=== PATIENT | female | born 1965 | race African-American/Black ===

== ENCOUNTER 2021-08-16 22:27 | Emergency (ER) | payer MEDICARE, MEDICAID, SELFPAY ==
[2021-08-16 22:35] VITALS: BP 173/100; PULSE 88; RESP 18; TEMP 35.9; O2SAT 98
--- NOTE | 2021-08-16 23:12 | ED.GENADULT ---
HPI - General Adult General Chief complaint: Unspecified Stated complaint: high blood pressure Source: patient Mode of arrival: ambulatory History of Present Illness HPI narrative: this is a 55-year-old female with history of hypertension presents with elevated blood pressure 180/101 patient states that she has been anxious and has anxiety since she had a bout of gastroenteritis. Patient also saw her primary care physician too long ago and they discontinued hydrochlorothiazide but the patient currently is taking lisinopril. There was no symptoms no headache no blurry vision no nausea vomiting no chest pain no shortness of breath no abdominal pain no fever chills. Onset (ago): hour(s) Severity: mild Related Data Home Medications Medication Instructions Recorded Confirmed lisinopril 20 mg PO DAILY 08/16/21 08/16/21 Allergies Allergy/AdvReac Type Severity Reaction Status Date / Time tea tree Allergy Unknown Verified 08/16/21 22:53 anesthesia Allergy Unknown Uncoded 08/16/21 22:53 Review of Systems Review of Systems: All systems reviewed & are unremarkable except as noted in HPI and below PMFSH Past Medical History Medical History HTN (hypertension) Exam Const: General: cooperative, healthy appearing, comfortable and no acute distress HENMT: Head: normal to inspection Ears: hearing grossly normal bilaterally General nose exam: Normal external nose present Face and sinus: normal facial exam, sinuses nontender and face symmetric Mouth: Yes Normal oral and palatal mucosa present Teeth and gingiva: dentition normal Throat: posterior oropharynx normal Eyes: General: appearance normal, both eyes and all related structures Eyelids: eyelids normal Conjunctivae: conjunctivae normal Sclera: sclerae normal Neck: Neck: normal visual inspection, full ROM and no lymphadenopathy Chest: Chest palpation & inspection: normal inspection of the chest and normal palpation of entire chest wall Resp: Effort & Inspection: normal respiratory effort and able to speak in complete sentences Auscultation: clear to auscultation bilaterally Cardio: Jugular venous distension: no JVD Palpation: normal PMI Rate: regular rate Rhythm: regular rhythm GI: Inspection: normal to inspection Back/Spine/Pelvis: Back: no CVA tenderness Skin: General skin exam: normal color and no rashes or lesions noted Neuro: General: oriented to person, oriented to place, oriented to time, patient oriented x3 and gait normal Psych: Appearance: grossly normal and well kempt Course Course Emergency Course: patient with elevated blood pressure, has improved with some IV Lopressor 5mg, the patient states that she has been having anxiety but declined taking any anxiety medicines while here in the ER. Critical Care Time Critical Care Time Critical Care Time: No Discharge Plan Discharge Clinical Impression: HTN (hypertension), Anxiety Patient Disposition: Home, Self-Care Condition: Stable Instructions: Antibiotic Form, Hypertension (ED), Anxiety (ED) Additional Instructions: take medicine as prescribed and follow-up with primary care physician within 1 week for further evaluation treatment. Prescriptions: New amlodipine [Norvasc] 5 mg tablet 5 mg PO DAILY Qty: 30 RF: 0 alprazolam [Xanax] 0.5 mg tablet 0.5 mg PO BID PRN (Reason: anxiety) Qty: 20 RF: 0 No Action lisinopril 20 mg Tablet 20 mg PO DAILY RF: 0 Follow-up/Referrals: Mahin,Juan Cedeno MD [Primary Care Provider] - Time of Disposition: 23:23
[2021-08-16 23:26] VITALS: PULSE 74
[2021-08-16] MEDS: METOPROLOL TARTRATE INJ 5 MG/5 ML VIAL IV PUSH (23:26)
[2021-08-16 23:30] VITALS: BP 188/99; PULSE 78; RESP 18; O2SAT 97
[2021-08-16 23:54] VITALS: BP 158/103; PULSE 65
[2021-08-17] VITALS: BP 163/96; BP 172/99; PULSE 67; PULSE 68; RESP 16; RESP 18; O2SAT 96; O2SAT 97
[2021-08-17 00:15] VITALS: BP 178/91; PULSE 69; RESP 16; O2SAT 96
== END 2021-08-17 00:26 | disposition home or self-care (01) ==
PROVIDERS: Emergency Provider Emergency Medicine; PCP Internal Medicine
DX: I10 Essential (primary) hypertension (principal); F41.9 Anxiety disorder, unspecified
CPT/HCPCS: 96374; 99284

== ENCOUNTER 2022-03-10 13:44 | Emergency (ER) | payer MEDICARE, MEDICAID, SELFPAY ==
[2022-03-10 13:55] VITALS: BP 145/91; PULSE 99; RESP 16; TEMP 36.3; O2SAT 97
--- NOTE | 2022-03-10 14:07 | ED.URI ---
HPI - URI/Sore Throat General Chief Complaint: Upper Respiratory Infection Stated Complaint: Sinus infection and ear and mouth pain Time Seen by Provider: 03/10/22 14:06 Source: patient and RN notes reviewed Mode of arrival: ambulatory Limitations: no limitations History of Present Illness MD elicited complaint: rhinorrhea, nasal congestion and other (dental pain Right lower) Onset (ago): day(s) (3) Consistency: constant Severity: moderate Able to tolerate fluids by mouth: Yes Exacerbating factors: other (chewing) Relieving factors: nothing Treatments prior to arrival: none Related Data Home Medications Medication Instructions Recorded Confirmed lisinopril 20 mg tablet 20 mg PO DAILY 08/16/21 03/10/22 albuterol sulfate 90 mcg/actuation 2 puff inhalation BID 03/10/22 03/10/22 aerosol inhaler Allergies Allergy/AdvReac Type Severity Reaction Status Date / Time tea tree Allergy Unknown Verified 03/10/22 14:13 anesthesia Allergy Unknown Uncoded 08/16/21 22:53 PMFSH Past Medical History Medical History (Updated 03/10/22 @ 14:26 by Anastacio Eastman MD) HTN (hypertension) Surgical History Surgical History (Updated 03/10/22 @ 14:18 by Anastacio Eastman MD) H/O knee surgery right x2 H/O shoulder surgery left x2 Prior ectopic in first trimester, antepartum Social History Social History (Updated 03/10/22 @ 14:17 by Anastacio Eastman MD) Smoking packs per day: 0.5 Smoking cigarettes per day: 10.0 Smoking status: Current every day smoker Tobacco type: cigarettes Alcohol intake: former Substance use: never Exam Const: General: healthy appearing, no acute distress and alert Nutritional Appearance: well nourished Orientation/consciousness: patient oriented x3 Limitations: no limitations HENMT: Head: normal to inspection Ears: external ears normal and TM's normal bilaterally Face/Nose/Sinus: Normal external nose present Face and sinus: sinus tenderness maxillary ( bilateral) Mouth: Yes Normal oral and palatal mucosa present and Yes moist mucous membranes Teeth and gingiva: abnormal tooth and associated gingiva lower right second molar tender and with associated gingival edema Throat: posterior oropharynx normal and uvula midline Eyes: Conjunctivae: conjunctivae normal Pupils: Equal, round and reactive pupils present EOM: EOMs intact bilaterally Neck: Neck: normal visual inspection and no lymphadenopathy Resp: Effort & Inspection: normal respiratory effort Auscultation: clear to auscultation bilaterally Cardio: Rate: regular rate Rhythm: regular rhythm GI: GI Palp: Yes Soft to palpation and No Tenderness to palpation present (GI) Auscultation: normal bowel sounds Back/Spine/Pelvis: Cervical Spine: cervical ROM normal Thoracic/Lumbar Spine: thoraco-lumbar ROM normal Skin: General skin exam: normal color Rashes: no rashes Neuro: General: patient oriented x3, moves all extremities, no focal motor deficits and CN's II-XI intact bilaterally Speech: normal speech Gait exam (Neuro): Normal gait present Extrem: General: normal to inspection and no clubbing, cyanosis or edema Psych: Mental Status: mental status grossly normal Affect: normal affect Attitude: cooperative Discharge Plan Discharge Clinical Impression: Dental abscess Acute maxillary sinusitis Qualifiers: Recurrence: non-recurrent Qualified Code(s): J01.00 - Acute maxillary sinusitis, unspecified Patient Disposition: Home, Self-Care Condition: Stable Instructions: Antibiotic Form, Dental Abscess (ED), Sinusitis (ED) Prescriptions: New amoxicillin-pot clavulanate 875-125 mg tablet 1 tablet PO Q12H 10 Days Qty: 20 0RF No Action lisinopril 20 mg Tablet 20 mg PO DAILY alprazolam [Xanax] 0.5 mg tablet 0.5 mg PO BID PRN (Reason: anxiety) Qty: 20 0RF albuterol sulfate 90 mcg/actuation HFA aerosol inhaler 2 puff INHALATION BID Follow-up/Referrals: Mahin,Juan Cedeno
== END 2022-03-10 14:31 | disposition home or self-care (01) ==
PROVIDERS: Emergency Provider Emergency Medicine; PCP Internal Medicine
DX: J01.00 Acute maxillary sinusitis, unspecified (principal)
CPT/HCPCS: 99283

== ENCOUNTER 2022-05-25 19:17 | Emergency (ER) | payer MEDICARE, MEDICAID, SELFPAY ==
[2022-05-25] VITALS (9 sets, daily range): BP systolic 147–164; BP diastolic 69–91; PULSE 106; RESP 20; TEMP 36.7; O2SAT 97–100
--- NOTE | 2022-05-25 19:28 | ED.HA ---
HPI - Headache General Chief Complaint: Headache Stated Complaint: High BP Source: patient Mode of arrival: ambulatory Limitations: no limitations History of Present Illness HPI Narrative: 56-year-old female, smoker with a history of hypertension, anxiety, bronchitis received bad news regarding her [id number]. The patient presents to the ER with -- headache- located on her left restorationist. No nausea/ vomiting. No focal neuro deficits. -- hypertension -- anxiety -- Left arm discomfort. No chest pain. No shortness of breath -- had high blood pressure at home with a blood pressure of 150/101. The current blood pressure is noted to be 164/69. the patient is scheduled to get a stress test by her arnp. She has had symptoms like this in the past related to anxiety. MD elicited complaint: headache Onset (ago): hour(s) ( Started 4 hours ago.) Onset description: gradually Location: left Severity: mild Quality & Timing: aching Exacerbating factors: none Relieving factors: nothing Context: occurred at rest Associated symptoms: none Treatments prior to arrival: none Related Data Home Medications Medication Instructions Recorded Confirmed lisinopril 20 mg tablet 20 mg PO DAILY 08/16/21 05/25/22 albuterol sulfate 90 mcg/actuation 2 puff inhalation BID 03/10/22 05/25/22 aerosol inhaler Allergies Allergy/AdvReac Type Severity Reaction Status Date / Time tea tree Allergy Unknown Verified 03/10/22 14:13 anesthesia Allergy Unknown Uncoded 08/16/21 22:53 Review of Systems Review of Systems: All systems reviewed & are unremarkable except as noted in HPI and below Constitutional: Constitutional: Reports as per HPI and Reports no additional constitutional complaints Eyes: Eyes: Reports as per HPI and Reports no additional eye complaints ENT: Reports system reviewed and no additional complaints, except as documented and Reports as per HPI Cardiovascular: Cardiovascular: Reports as per HPI and Reports no additional cardiovascular complaints Comments: Had hypertension with blood pressure 150/101 Respiratory: Respiratory: Reports as per HPI and Reports no additional respiratory complaints Gastrointestinal: Gastrointestinal: Reports as per HPI and Reports no additional gastrointestinal complaints Genitourinary: Genitourinary: Reports no additional female genitourinary complaints and Reports as per HPI Musculoskeletal: Musculoskeletal: Reports no additional musculoskeletal complaints and Reports as per HPI Integumentary/Breasts: Skin/Breast: Reports system reviewed and no additional complaints, except as docu and Reports as per HPI Neurologic: Reports system reviewed and no additional complaints, except as documented and Reports as per HPI Psychiatric: Psychiatric: Reports no additional psychiatric complaints, Reports as per HPI and Reports anxiety Endocrine: Endocrine: Reports no additional endocrine complaints and Reports as per HPI Hematologic/Lymphatic: Hematologic/Lymphatic: Reports no additional hematologic/lymphatic complaints and Reports as per HPI Allergic/Immunologic: Allergic/Immunologic: Reports no additional allergic/immunologic complaints and Reports as per HPI PMFSH Past Medical History Medical History HTN (hypertension) Surgical History Surgical History H/O knee surgery right x2 H/O shoulder surgery left x2 Prior ectopic in first trimester, antepartum Social History Social History Smoking packs per day: 0.5 Smoking cigarettes per day: 10.0 Smoking status: Current every day smoker Tobacco type: cigarettes Alcohol intake: former Substance use: never Exam Const: General: healthy appearing Nutritional Appearance: obese Orientation/consciousness: patient oriented x3 Limitations: no limitati
--- NOTE | 2022-05-25 19:39 | ECG_ITS ---
Measurements Intervals [place] Rate: 81 P: 64 MO: 141 QRS: 23 QRSD: 79 T: 46 QT: 372 QTc: 433 Interpretive Statements SINUS RHYTHM POSSIBLE LEFT ATRIAL ENLARGEMENT [-0.1mV P-WAVE IN V1/V2] LOW QRS VOLTAGE IN PRECORDIAL LEADS [QRS DEFLECTION < 1.0 mV IN CHEST LEADS] ANTEROSEPTAL MYOCARDIAL INFARCTION , OF INDETERMINATE AGE [40+ ms Q WAVE IN V1-V4] NONSPECIFIC T-WAVE ABNORMALITY ABNORMAL ECG NO PREVIOUS ECG AVAILABLE FOR COMPARISON Electronically Signed On 05-26-2022 11:27:24 [employer] by Gustabo Srinivasan M.D.
[2022-05-25 20:06] LABS: Basophils Absolute Auto 0.04 K/mm3 (0.00-0.10); Basophils Percent Auto 0.5 % (0.0-1.0); Eosinophils Absolute Auto 0.15 K/mm3 (0.02-0.50); Hematocrit 39.7 % (35.0-49.0); Hemoglobin 13.1 g/dL (12.0-15.0); Immature Granulocyte Absolute 0.02 K/mm3 (0.00-0.00); Immature Granulocyte Percent A 0.3 % (0.0-0.0); Lymphocytes Absolute Auto 1.97 K/mm3 (1.10-4.50); Lymphocytes Percent Auto 25.8 % (18.0-42.0); Mean Corpuscular Hemoglobin 28.6 pg (27.0-31.0); Mean Corpuscular Volume 86.7 fL (78.0-102.0); Mean Platelet Volume 9.1 fl (9.2-11.8); Monocytes Absolute Auto 0.56 K/mm3 (0.10-0.90); Monocytes Percent Auto 7.3 % (2.0-11.0); Neutrophils Absolute Auto 4.9 K/mm3 (1.7-7.2); Neutrophils Percent Auto 64.1 % (50.0-70.0); Platelet Count Result 314 K/mm3 (150-420); Red Blood Count 4.58 M/mm3 (4.20-5.40); Red Cell Distribution Width 14.2 % (11.6-14.4); White Blood Count 7.6 K/mm3 (4.8-10.8)
[2022-05-25 20:15] LABS: Add Urine Microscopic? NO; Appearance Urine Clear (Clear); Bilirubin Urine Negative (Negative); Blood Urine Negative (Negative); Color Urine Light Yellow (Yellow); Glucose Urine UA Negative (Negative); Ketones Urine Negative (Negative); Leukocyte Esterase Ur Negative LEU/UL (Negative); Nitrate Urine Negative (Negative); Protein Urine Negative (Negative); Urobilinogen Urine 0.2 mg/dL (0.2-1.0)
[2022-05-25 20:25] LABS: Lactic Acid Reflex 2.4 mmol/L (0.4-2.0)
[2022-05-25 20:29] LABS: Alanine Aminotransferase 11 U/L (14-59); Albumin Level 3.1 g/dL (3.4-5.0); Alkaline Phosphatase 91 U/L (46-116); Anion Gap 10 mmol/L (8-16); Aspartate Amino Transferase 10 U/L (15-37); Bilirubin,Total 0.3 mg/dL (0.00-1.00); Blood Urea Nitrogen 8 mg/dL (7-18); Calcium 8.7 mg/dL (8.5-10.1); Carbon Dioxide 29 mmol/L (21-32); Chloride 105 mmol/L (98-108); Estimated CRCL calculation 69 ml/min; Estimated Glomerular Filt Rate > 60; Glucose 135 mg/dL (70-99); Osmolality Calculated 298 mOsm/kg (285-295); Potassium 3.6 mmol/L (3.5-5.1); Sodium 144 mmol/L (136-145); Thyroid Stimulating Hormone 0.96 uIU/mL (0.36-3.74); Total Protein 7.3 g/dL (6.4-8.2); Troponin I 10.3 ng/L (0.00-60.4)
== END 2022-05-25 21:00 | disposition home or self-care (01) ==
PROVIDERS: Emergency Provider Internal Medicine Critical Care Medicine; PCP Internal Medicine
DX: F41.9 Anxiety disorder, unspecified (principal); R51.9 Headache, unspecified; I10 Essential (primary) hypertension; F17.210 Nicotine dependence, cigarettes, uncomplicated
CPT/HCPCS: 36415; 80053; 81003; 83605; 84443; 84484; 85025; 93005; 99284

== ENCOUNTER 2022-09-06 23:07 | Emergency (ER) | payer MEDICARE, MEDICAID, SELFPAY ==
--- NOTE | ~2022-09-06 | CT_ITS ---
EXAMINATION: CT brain & sinus wo con INDICATION: Headache COMPARISON: None TECHNIQUE: Standard unenhanced head CT and sinus. The dose-length product (DLP) was 756.67 mGy-cm. Th e mA was adjusted according to patient size. Iterative reconstruction technique was employed. FINDINGS: CT HEAD: Motion artifact mildly limits the examination There is no intracranial hemorrhage, acute inf arction, or abnormal mass lesion. The ventricles are normal. There is no abnormal mass effect or midl ine shift. The franks-white matter differentiation is normal. The basal cisterns are patent. The orbits are normal. The paranasal sinuses, mastoids and calvarium are normal. CT SINUSES: There is normal development and pneumatization of the paranasal sinuses. There is partial opacification of the left posterior ethmoidal air cells. The frontal, sphenoid, and maxillary sinuse s are clear. The bilateral ostiomeatal complexes are patent. Visualized soft tissues are unremarkable . IMPRESSION: 1. No acute intracranial abnormality. 2. Partial opacification of the left posterior ethmoidal air cells. Reviewed, dictated and finalized at location A.
[2022-09-06 23:09] VITALS: BP 121/80; PULSE 88; RESP 20; TEMP 36.5; O2SAT 100
--- NOTE | 2022-09-06 23:10 | ED.GENADULT ---
HPI - General Adult General Chief complaint: Headache Stated complaint: Sinus Infection Time Seen by Provider: 09/06/22 23:11 History of Present Illness HPI narrative: 56-year-old female patient is here with complaints of headache for the last 2 days which she describes as pressure through the entire head. Tonight she felt some pins and needles inside her head and she decided come to the ER for evaluation. Patient states that she has chronic sinus infection and has sinus headaches all the time. She has taken some Tylenol at home. She cannot take ibuprofen because of the gastric problems. She is a smoker of a pack of cigarettes a day and she also has history of hypertension. She is complaining of pain in the neck as well but has no restrictions in moving it. She denies any vision problems. She denies any trouble with her speech or gait. She denies any weakness or numbness or tingling of extremities. Patient states that she would like to have a CT scan done as she is concerned about the pins and needles in her head. Related Data Home Medications Medication Instructions Recorded Confirmed lisinopril 20 mg tablet 20 mg PO DAILY 08/16/21 05/25/22 albuterol sulfate 90 mcg/actuation 2 puff inhalation BID 03/10/22 05/25/22 aerosol inhaler Allergies Allergy/AdvReac Type Severity Reaction Status Date / Time tea tree Allergy Unknown Verified 03/10/22 14:13 anesthesia Allergy Unknown Uncoded 08/16/21 22:53 Review of Systems Review of Systems: All systems reviewed & are unremarkable except as noted in HPI and below PMFSH Past Medical History Medical History HTN (hypertension) Surgical History Surgical History H/O knee surgery right x2 H/O shoulder surgery left x2 Prior ectopic in first trimester, antepartum Social History Social History Smoking packs per day: 0.5 Smoking cigarettes per day: 10.0 Smoking status: Current every day smoker Tobacco type: cigarettes Alcohol intake: former Substance use: never Exam Narrative: Alert female patient who appears in no acute distress. Vital signs are stable. Patient has a blood pressure of 121/80. Pulse rate is 88 and respirations are 20. SpO2 on room air is 100%. HEENT: nontender head. Pupils are midsize equal and reactive to light. EOMs are intact. Disc margins are clear. Patient has sinus tenderness in both frontal and ethmoidal signs is as well as maxillary sinus area. In nose throat are normal. No facial asymmetry is noted. Neck is supple. There is no evidence of meningismus. There is no midline tenderness. Minimal tenderness is noted in the musculature of paracervical areas. Chest is clear to auscultation. Heart tones are regular. Abdomen is soft and nontender. Extremities are atraumatic. Skin is warm and dry and color is normal. Patient is alert and oriented x4. Her gait is steady. Speech is normal. Motor and sensory is intact. Deep tendon reflexes are intact. Cranial nerves 2-12 are intact. Mood and affect are normal. Course Course Emergency Course: Patient is feeling better after ketorolac intramuscular injection. She wants to be discharged before the CT scan results are available. Patient wants to be called if there is any abnormality on the CT scan, Will discharge the patient with a Z honey for sinusitis but she has been advised to stop smoking Medical Decision Making Differential Diagnosis Differential Diagnosis: Headache Intracranial bleed Sinusitis Discharge Plan Discharge Prescriptions: No Action lisinopril 20 mg Tablet 20 mg PO DAILY albuterol sulfate 90 mcg/actuation HFA aerosol inhaler 2 puff INHALATION BID Follow-up/Referrals: Mahin,Juan Cedeno MD [Primary Care Provider] -
[2022-09-06] MEDS: KETOROLAC (*BKC) 60 MG/2 ML VIAL IM (23:25)
[2022-09-07 00:15] VITALS: BP 121/88; PULSE 88; RESP 20; TEMP 36.7; O2SAT 99
== END 2022-09-07 00:16 | disposition home or self-care (01) ==
LOC: CHSED 09-07 00:08
PROVIDERS: Emergency Provider Emergency Medicine; PCP Internal Medicine
DX: R51.9 Headache, unspecified (principal); I10 Essential (primary) hypertension; F17.210 Nicotine dependence, cigarettes, uncomplicated
CPT/HCPCS: 70450; 70486; 96372; 99284; J1885

== ENCOUNTER 2022-12-17 12:53 | Outpatient (RCR) | payer OTHER, SELFPAY ==
--- NOTE | 2022-12-17 15:05 | OPREHPOC ---
Outpatient Therapy Plan of Care This is a Multidisciplinary Plan of Care that may contain components documented by all disciplines (PT, OT, and ST.) PT Problem 1 PT Problem #1 Knowledge Deficit PT Goal 1 Goal Patient to demonstrate independence with HEP Target Visit 6 PT Problem 2 PT Problem #2 Pain PT Goal 1 Goal 1. Patient to report highest pain at 4/10 2. Patient to report no sleep disturbance due to R shoulder pain Target Visit 12 PT Problem 3 PT Problem #3 Impaired Range of Motion PT Goal 1 Goal Patient to demonstrate R shoulder flexion to 140 deg AROM to return to reaching at PLOF Target Visit 12 PT Problem 4 PT Problem #4 Impaired Strength PT Goal 1 Goal Patient to demonstrate 4+/5 R shoulder strength to return to lifting for house hold tasks at PLOF Target Visit 12
--- NOTE | 2022-12-17 15:06 | PTOPEVAL1 ---
Assessment and note entered by Zehra Willis DPT Evaluation Information Assessment Status Evaluation Diagnosis R shoulder pain Onset 12/12/22 Subjective Information Patient reports in Dec she was helping with eduardo at [employer] and and injured her R shoulder. She reports since then she has developed frozen shoulder and has small tear in the RTC. She reports last week she got 3 injections in the shoulder and now feels like her arm is heavy. Pain is located at posterior and superior shoulder with numbness and tinlging in the 4th and 5th finger. She no longer works at [employer]. Patient has difficulty doing her hair, dressing, lifting, and reaching into cabinets. RTMD 12/30/22 Reported Pain Level Pain Score 8: Self Report Assessment PT Clinical Summary Patient is a 57 year old female who presents to PT with R shoulder pain following work injury. Patient demonstrates decreased R shoulder strength , decreased R shoulder ROM and increase pain limiting her ability to do her hair, dress, perform house hold chores and sleep. She would benefit from skilled PT to address impairments and return to [facility]. Plan of Care Interventions Electrical Stimulation,Hot Pack/Cold Pack,Manual Therapy,Mechanical Traction,Neuro Re-education, Patient/Caregiver Educati,Therapeutic Activities, Therapeutic Exercise PT Services Indicated Yes Treatment Frequency and 2x weekly for 12 visits Duration These treatments will address the objective and functional deficits as defined above. The patient will be advanced safely and appropriately in order for the patient to progress towards his/her prior level of function. Additional exercises will be introduced and as well as a comprehensive home exercise program upon discharge, if needed, ?to ensure carryover of functional gains achieved in the clinic. This treatment plan has been reviewed and agreement upon by the patient.
--- NOTE | 2022-12-20 15:12 | PCPTNOTE ---
patient cancelled skilled PT today for an unknown reason. JTF
== END 2023-01-03 13:23 | disposition home or self-care (01) ==
LOC: CHSPT 12:53
DX: M25.511 Pain in right shoulder (principal)
CPT/HCPCS: 97014; 97110; 97161; G0283

== ENCOUNTER 2023-04-12 15:03 | Emergency (ER) | payer MEDICARE, MEDICAID, SELFPAY ==
[2023-04-12 15:41] VITALS: BP 155/92; PULSE 89; PULSE 98; RESP 18; TEMP 36.7; TEMP 37.1; O2SAT 98
[2023-04-12 15:49] VITALS: PULSE 87; RESP 21; O2SAT 98
[2023-04-12 16:00] VITALS: PULSE 87; RESP 25; O2SAT 99
[2023-04-12 16:01] VITALS: BP 140/93; PULSE 86; RESP 25; O2SAT 99
--- NOTE | 2023-04-12 16:08 | ED.HA ---
HPI - Headache General Chief Complaint: Headache Stated Complaint: htn 179/101 Source: patient Mode of arrival: ambulatory Limitations: no limitations History of Present Illness HPI Narrative: this is a 48 old female with history of hypertension presents right no cervical tenderness injury no neurologic deficits no blurry vision no no chest currently no shortness of breath chills patient has history of hypertension rotator cuff tear, presents because blood pressure was elevated initially at 160 systolic. MD elicited complaint: headache Onset (ago): hour(s) Onset description: gradually Location: right and occipital Severity: mild Pain scale (0-10): 3 Quality & Timing: aching Related Data Home Medications Medication Instructions Recorded Confirmed lisinopril 20 mg tablet 20 mg PO DAILY 08/16/21 05/25/22 albuterol sulfate 90 mcg/actuation 2 puff inhalation BID 03/10/22 05/25/22 aerosol inhaler Allergies Allergy/AdvReac Type Severity Reaction Status Date / Time tea tree Allergy Unknown Verified 03/10/22 14:13 anesthesia Allergy Unknown Uncoded 08/16/21 22:53 Review of Systems Review of Systems: All systems reviewed & are unremarkable except as noted in HPI and below PMFSH Past Medical History Medical History HTN (hypertension) Surgical History Surgical History H/O knee surgery right x2 H/O shoulder surgery left x2 Prior ectopic in first trimester, antepartum Social History Social History Smoking packs per day: 0.5 Smoking cigarettes per day: 10.0 Smoking status: Current every day smoker Tobacco type: cigarettes Alcohol intake: former Substance use: never Exam Const: General: healthy appearing Nutritional Appearance: well nourished Orientation/consciousness: patient oriented x3 Limitations: no limitations HENMT: Head: normal to inspection Eyes: Conjunctivae: conjunctivae normal Pupils: Equal, round and reactive pupils present Neck: Neck: normal visual inspection, no lymphadenopathy and no meningeal signs Chest: Chest palpation & inspection: normal inspection of the chest Resp: Effort & Inspection: normal respiratory effort Auscultation: clear to auscultation bilaterally Cardio: Rate: regular rate Rhythm: regular rhythm GI: GI Palp: Yes Soft to palpation Neuro: General: patient oriented x3, moves all extremities, no meningeal signs and no focal motor deficits Extrem: General: normal to inspection Course Course Emergency Course: Patient currently blood pressure 140/70, that give a dose p.o. Tylenol 1g prior to discharge and will be sending pain medication and a dose of lisinopril his intake along with her current antihypertensives Vital Signs Vital signs: Vital Signs Temperature 37.1 C 04/12/23 15:41 Pulse Rate 98 04/12/23 15:41 Respiratory Rate 18 04/12/23 15:41 Blood Pressure 155/92 H 04/12/23 15:41 Pulse Oximetry 98 04/12/23 15:41 Oxygen Delivery Room Air 04/12/23 15:41 Temperature 37.1 C 04/12/23 15:41 Pulse Rate 98 04/12/23 15:41 Respiratory Rate 18 04/12/23 15:41 Blood Pressure 155/92 H 04/12/23 15:41 Pulse Oximetry 98 04/12/23 15:41 Oxygen Delivery Room Air 04/12/23 15:41 Critical Care Time Critical Care Time Critical Care Time: No Discharge Plan Discharge Clinical Impression: Headache Qualifiers: Headache type: unspecified Headache chronicity pattern: unspecified pattern Intractability: not intractable Qualified Code(s): R51.9 - Headache, unspecified HTN (hypertension) Qualifiers: Hypertension type: primary hypertension Qualified Code(s): I10 - Essential (primary) hypertension Patient Disposition: Home, Self-Care Condition: Stable Instructions: Temporal Arteritis (ED), Acute Headache (ED), Hypertension (ED)
[2023-04-12] MEDS: ACETAMINOPHEN 500 MG TABLET 1000 MG PO (16:13)
[2023-04-12 16:15] VITALS: PULSE 107; RESP 16
[2023-04-12 16:44] VITALS: BP 140/78; PULSE 99; RESP 17; TEMP 36.7; O2SAT 98
== END 2023-04-12 16:44 | disposition home or self-care (01) ==
PROVIDERS: Emergency Provider Emergency Medicine
DX: I10 Essential (primary) hypertension (principal); R51.9 Headache, unspecified; F17.210 Nicotine dependence, cigarettes, uncomplicated
CPT/HCPCS: 99283

== ENCOUNTER 2023-06-20 10:26 | Emergency (ER) | payer MEDICARE, MEDICAID, SELFPAY ==
[2023-06-20] VITALS (28 sets, daily range): BP systolic 140–183; BP diastolic 80–96; PULSE 60–95; RESP 12–20; TEMP 36.9; O2SAT 96–100
--- NOTE | ~2023-06-20 | XR_ITS ---
EXAMINATION: XR chest 2V DATE: 06/20/2023 10:57 INDICATION: Chest pain. TECHNIQUE: Frontal and lateral views of the chest were obtained. COMPARISON: None. FINDINGS: There is no pneumonia, pleural effusion, or pneumothorax. The heart size is normal. IMPRESSION: 1. No acute cardiopulmonary disease. Reviewed, dictated and finalized at location A. NCIAL PLANNING ASSISTANT
--- NOTE | ~2023-06-20 | CT_ITS ---
EXAMINATION: CTA chest PE protocol DATE: 06/20/2023 11:46 INDICATION: Acute chest pain. TECHNIQUE: Computed tomography angiography (CTA) of the chest was performed with 100 mL Omnipaque-350 intravenous contrast timed to evaluate the pulmonary arteries. Coronal maximum intensity projection 3D-reconstructions were created by the technologist. Automated exposure control and iterative reconst ruction technique were employed. The dose-length product was 412.32 mGy-cm. COMPARISON: None. FINDINGS: There is mild emphysema. There is a 10 mm groundglass opacity in right upper lobe, likely b enign. No pleural effusion. The heart size is normal. No pericardial effusion. There is no pulmonary embolus. There is mild thoracic spondylosis. IMPRESSION: 1. No pulmonary embolus. 2. Mild emphysema. Reviewed, dictated and finalized at location A. ECT DEVELOPMENT ENGINEER
--- NOTE | 2023-06-20 10:28 | ECG_ITS ---
Measurements Intervals [place] Rate: 67 P: 68 ID: [id number] QRS: 35 QRSD: 80 T: 61 QT: 400 QTc: 424 Interpretive Statements SINUS RHYTHM NONSPECIFIC T-WAVE ABNORMALITY- HIGH LATERAL LEADS BASELINE ARTIFACT- II, III, AVR, AVL, AVF, V1-V2 BORDERLINE ECG COMPARED TO ECG 05/25/2022 19:51:52 NO SIGNIFICANT CHANGES Electronically Signed On 06-20-2023 12:16:54 [employer] by Bryan Joe D.O.
--- NOTE | 2023-06-20 10:28 | ED.CHESTPAIN ---
HPI - Chest Pain General Chief Complaint: Chest Pain Stated Complaint: chest pressure/hypertension Time Seen by Provider: 06/20/23 10:27 Source: patient and EMS Mode of arrival: ambulatory Limitations: no limitations History of Present Illness HPI narrative: patient is a 57-year-old female with chest pain. She was having elevated blood pressures and headache as well. She did not take her blood pressure medicine for 2 days now. She is out of her blood pressure medicine. She is also having some GERD issues. Four baby aspirin were given with EMS. MD complaint: chest pain Pertinent past history: other ( hypertension and hyperlipids) Onset (ago): day(s) (2) Timing of current episode: episodic Prior episodes: Yes Onset: during rest and after eating Pain location: epigastric Pain radiation: none Severity: mild Pain scale (0-10): 3 Quality: tightness and heaviness Relieving factors: nothing Exacerbating factors: nothing Context: other ( Did not take her blood pressure medicine for 2 days as she is out of her medicine) Treatment prior to arrival: aspirin ( via EMS) Risk Factors Coronary artery disease risk factors: hyperlipidemia and hypertension Thoracic aortic dissection risk factors: none Related Data On Oral Contraceptives: No Home Medications Medication Instructions Recorded Confirmed amlodipine 5 mg tablet 5 mg PO DAILY 04/12/23 04/12/23 atorvastatin 10 mg tablet 10 mg PO DAILY 04/12/23 04/12/23 diclofenac sodium 50 mg mg PO 04/12/23 tablet,delayed release lisinopril 20 1 tablet PO DAILY 04/12/23 04/12/23 mg-hydrochlorothiazide 25 mg tablet tizanidine 2 mg tablet 2 mg PO DAILY 04/12/23 04/12/23 Allergies Allergy/AdvReac Type Severity Reaction Status Date / Time tea tree Allergy Unknown Verified 04/12/23 16:29 anesthesia Allergy Unknown Uncoded 04/12/23 16:29 Review of Systems Review of Systems: All systems reviewed & are unremarkable except as noted in HPI and below Constitutional: Constitutional: Reports no additional constitutional complaints Eyes: Eyes: Reports no additional eye complaints ENT: Reports system reviewed and no additional complaints, except as documented Cardiovascular: Cardiovascular: Reports no additional cardiovascular complaints Respiratory: Respiratory: Reports no additional respiratory complaints Gastrointestinal: Gastrointestinal: Reports no additional gastrointestinal complaints Genitourinary: Genitourinary: Reports no additional female genitourinary complaints Musculoskeletal: Musculoskeletal: Reports no additional musculoskeletal complaints Integumentary/Breasts: Skin/Breast: Reports system reviewed and no additional complaints, except as docu Neurologic: Reports system reviewed and no additional complaints, except as documented Psychiatric: Psychiatric: Reports no additional psychiatric complaints Endocrine: Endocrine: Reports no additional endocrine complaints Hematologic/Lymphatic: Hematologic/Lymphatic: Reports no additional hematologic/lymphatic complaints Allergic/Immunologic: Allergic/Immunologic: Reports no additional allergic/immunologic complaints PMFSH Past Medical History Medical History HTN (hypertension) Surgical History Surgical History H/O knee surgery right x2 H/O shoulder surgery left x2 Prior ectopic in first trimester, antepartum Social History Social History Smoking packs per day: 0.5 Smoking cigarettes per day: 10.0 Smoking status: Current every day smoker Tobacco type: cigarettes Alcohol intake: former Substance use: never Exam Const: General: healthy appearing Nutritional Appearance: well nourished Orientation/consciousness: patient oriented x3 HENMT: Head: normal to inspection Ears: external ears normal Face/Nose/Sinus: Normal
[2023-06-20 10:48] LABS: Basophils Absolute Auto 0.04 K/mm3 (0.00-0.10); Basophils Percent Auto 0.5 % (0.0-1.0); Eosinophils Absolute Auto 0.17 K/mm3 (0.02-0.50); Eosinophils Percent Auto 2.3 % (1.0-6.0); Hematocrit 39.8 % (35.0-49.0); Hemoglobin 13.5 g/dL (12.0-15.0); Immature Granulocyte Absolute 0.02 K/mm3 (0.00-0.00); Immature Granulocyte Percent A 0.3 % (0.0-0.0); Lymphocytes Absolute Auto 1.52 K/mm3 (1.10-4.50); Lymphocytes Percent Auto 20.2 % (18.0-42.0); Mean Corpuscular HGB Conc 33.9 g/dL (32.0-36.0); Mean Corpuscular Hemoglobin 28.5 pg (27.0-31.0); Mean Corpuscular Volume 84.1 fL (78.0-102.0); Monocytes Absolute Auto 0.63 K/mm3 (0.10-0.90); Monocytes Percent Auto 8.4 % (2.0-11.0); Neutrophils Absolute Auto 5.1 K/mm3 (1.7-7.2); Neutrophils Percent Auto 68.3 % (50.0-70.0); Platelet Count Result 310 K/mm3 (150-420); Red Blood Count 4.73 M/mm3 (4.20-5.40); Red Cell Distribution Width 13.4 % (11.6-14.4); White Blood Count 7.5 K/mm3 (4.8-10.8)
[2023-06-20] MEDS: cloNIDine HCL 0.1 MG TABLET PO (10:49)
[2023-06-20 11:05] LABS: D Dimer 0.53 mg/L (0.19-0.50)
[2023-06-20 11:07] LABS: Alanine Aminotransferase 13 U/L (14-59); Albumin Level 3.3 g/dL (3.4-5.0); Alkaline Phosphatase 87 U/L (46-116); Anion Gap 8 mmol/L (8-16); Aspartate Amino Transferase 11 U/L (15-37); Bilirubin,Total 0.4 mg/dL (0.00-1.00); Blood Urea Nitrogen 7 mg/dL (7-18); Carbon Dioxide 28 mmol/L (21-32); Chloride 104 mmol/L (98-108); Estimated CRCL calculation 68 ml/min; Estimated Glomerular Filt Rate > 60; Glucose 104 mg/dL (70-99); Lipase 27 U/L (16-77); Osmolality Calculated 288 mOsm/kg (285-295); Potassium 3.7 mmol/L (3.5-5.1); Sodium 140 mmol/L (136-145); Total Protein 7.2 g/dL (6.4-8.2); Troponin I 6.2 ng/L (0.00-60.4)
[2023-06-20 11:44] LABS: Appearance Urine Clear (Clear); Bilirubin Urine Negative (Negative); Blood Urine Negative (Negative); Color Urine Light Yellow (Yellow); Glucose Urine UA Negative (Negative); Ketones Urine Negative (Negative); Leukocyte Esterase Ur Negative LEU/UL (Negative); Nitrate Urine Negative (Negative); Protein Urine Negative (Negative); Specific Grav Ur 1.015 (1.010-1.020); Urobilinogen Urine 0.2 mg/dL (0.2-1.0)
[2023-06-20 11:48] LABS: Add Urine Microscopic? NO
[2023-06-20 13:39] LABS: Troponin I 8.3 ng/L (0.00-60.4)
== END 2023-06-20 14:01 | disposition home or self-care (01) ==
LOC: CHSED 11:03
PROVIDERS: Emergency Provider Emergency Medicine; PCP Nurse Practitioner Family
DX: R07.89 Other chest pain (principal); I10 Essential (primary) hypertension; F17.210 Nicotine dependence, cigarettes, uncomplicated
CPT/HCPCS: 36415; 71046; 71275; 80053; 81003; 83690; 84484; 85025; 85380; 93005; 99284; A9270; Q9967

== ENCOUNTER 2023-09-29 07:33 | Emergency (ER) | payer MEDICARE, SELFPAY ==
[2023-09-29] VITALS (16 sets, daily range): BP systolic 163–183; BP diastolic 73–103; PULSE 62–88; RESP 14–16; TEMP 36.3–36.6; O2SAT 92–100
--- NOTE | ~2023-09-29 | CT_ITS ---
Non-contrast Head CT History: Headache COMPARISON: 09/06/2022 Technique: Axial non-contrast imaging of the brain was performed. Dose reduction technique was used on this scan by utilizing automated exposure control and iterative reconstruction technique. The dose -length product (DLP) was 605.33 mGy-cm. Findings: There is no evidence of intracranial hemorrhage, mass lesion, or acute infarct. Brain par enchyma appears normal. The ventricles and subarachnoid spaces are normal in size. The calvarium ap pears normal. The visualized paranasal sinuses and mastoid air cells are clear. Impression: No significant abnormality seen. Reviewed, dictated and finalized at location . Impression: No significant abnormality seen.
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
[2023-09-29] MEDS: ACETAMINOPHEN 325 MG TABLET 650 MG PO (08:15)
[2023-09-29 08:17] LABS: Basophils Absolute Auto 0.04 K/mm3 (0.00-0.10); Basophils Percent Auto 0.7 % (0.0-1.0); Eosinophils Absolute Auto 0.13 K/mm3 (0.02-0.50); Eosinophils Percent Auto 2.2 % (1.0-6.0); Hematocrit 41.4 % (35.0-49.0); Hemoglobin 13.5 g/dL (12.0-15.0); Immature Granulocyte Absolute 0.01 K/mm3 (0.00-0.00); Immature Granulocyte Percent A 0.2 % (0.0-0.0); Lymphocytes Percent Auto 23.3 % (18.0-42.0); Mean Corpuscular HGB Conc 32.6 g/dL (32-36); Mean Corpuscular Hemoglobin 27.9 pg (27.0-31.0); Mean Corpuscular Volume 85.5 fL (78.0-102.0); Monocytes Absolute Auto 0.56 K/mm3 (0.10-0.90); Monocytes Percent Auto 9.3 % (2.0-11.0); Neutrophils Absolute Auto 3.88 K/mm3 (1.70-7.20); Neutrophils Percent Auto 64.3 % (50.0-70.0); Platelet Count Result 268 K/mm3 (150-420); Red Blood Count 4.84 M/mm3 (4.20-5.40); Red Cell Distribution Width 13.6 % (11.6-14.4)
[2023-09-29 08:32] LABS: Alanine Aminotransferase 16 U/L (14-59); Albumin Level 3.3 g/dL (3.4-5.0); Alkaline Phosphatase 85 U/L (46-116); Anion Gap 7 mmol/L (4-12); Aspartate Amino Transferase 19 U/L (15-37); Bilirubin,Total 0.3 mg/dL (0.00-1.00); Blood Urea Nitrogen 9 mg/dL (7-18); Calcium 9.2 mg/dL (8.5-10.1); Carbon Dioxide 31 mmol/L (21-32); Chloride 104 mmol/L (98-108); Estimated CRCL calculation 66 ml/min; Estimated Glomerular Filt Rate > 60; Glucose 97 mg/dL (70-99); Osmolality Calculated 292 mOsm/kg (285-295); Potassium 3.6 mmol/L (3.5-5.1); Sodium 142 mmol/L (136-145); Total Protein 8.2 g/dL (6.4-8.2)
[2023-09-29] MEDS: amLODIPine BESYLATE 2.5 MG TABLET PO (08:33)
== END 2023-09-29 09:07 | disposition home or self-care (01) ==
PROVIDERS: Emergency Provider Emergency Medicine; PCP Nurse Practitioner Family
DX: I10 Essential (primary) hypertension (principal); J44.9 Chronic obstructive pulmonary disease, unspecified; F17.210 Nicotine dependence, cigarettes, uncomplicated
CPT/HCPCS: 36415; 70450; 80053; 85025; 99284; A9270